=== PATIENT | male | born 1985 | race African-American/Black ===

== ENCOUNTER 2021-07-26 17:20 | Emergency (ER) | payer OTHER ==
[~2021-07-26] VITALS: Ht 170.2 cm; Wt 76.4 kg
[2021-07-26 17:31] VITALS: BP 122/65
== END 2021-07-26 18:29 | disposition home or self-care (01) ==
LOC: EMS 17:25
DX: Z20.822 Contact with and (suspected) exposure to COVID-19 (principal)
CPT/HCPCS: 99283; U0003